=== PATIENT | male | born 1990 | race Two or more races ===

== ENCOUNTER 2022-08-27 15:18 | Outpatient (CLI) | payer BC | END 2022-08-27 15:19 | disposition home or self-care (01) | LOC: BICRAD 15:18 | PROVIDERS: ATTEND Family Medicine | DX: R76.11 Nonspecific reaction to tuberculin skin test without active tuberculosis (principal) | CPT/HCPCS: 71046 ==

== ENCOUNTER 2025-03-21 09:29 | Outpatient (CLI) | payer BC | END 2025-03-21 09:30 | disposition home or self-care (01) | LOC: DTY/OP 09:29 | PROVIDERS: ATTEND Student in an Organized Health Care Education/Training Program | DX: E78.2 Mixed hyperlipidemia (principal) | CPT/HCPCS: 97802 ==